=== PATIENT | male | born 1995 | race Caucasian/White ===

== ENCOUNTER 2019-11-07 23:42 | Emergency (ER) | payer OTHER, SELFPAY ==
[2019-11-07 23:44] VITALS: BP 167/103; PULSE 95; RESP 17; TEMP 36.1; O2SAT 97; BMI 28.9
--- NOTE | 2019-11-08 00:07 | CT_ITS ---
STUDY: CT LUMBAR SPINE WITHOUT CONTRAST REASON FOR EXAM: Male, 24 years old. BACK PAIN, RADICULOPATHY, INJURED WHILE LIFTING YESTERDAY. RADIATES TO BOTH LEGS MOSTLY LEFT. RADIATION DOSAGE (If Supplied By Facility): CTDIvol = ( 14.70 ) mGy, DLP = ( 581.51 ) mGycm TECHNIQUE: The patient was scanned in a multi detector CT scanner. High resolution transaxial imaging was performed. Images were obtained from T11-T12 to distal coccyx. Sagittal and coronal images were reconstructed. Individualized dose optimization techniques were used for this CT. COMPARISON: None FINDINGS: Normal lumbar lordosis. There is mild scoliosis, convexity to the left. Normal alignment of the lumbar vertebral bodies. Normal vertebrae of the lumbar spine. There is no demonstrated compression deformity or fracture of the visualized lumbar vertebrae. L1-2: Normal endplates. Normal disc height and morphology. Normal bilateral facet joints. Normal central canal and bilateral lateral recesses. Normal bilateral intervertebral neural foramina. L2-3: Normal endplates. Normal disc height and morphology. Normal bilateral facet joints. Normal central canal and bilateral lateral recesses. Normal bilateral intervertebral neural foramina. L3-4: Normal endplates. Normal disc height and morphology. Normal bilateral facet joints. Normal central canal and bilateral lateral recesses. Normal bilateral intervertebral neural foramina. L4-5: Focal disc bulge in the left paracentral region. Borderline mild spinal stenosis. L5-S1: Normal endplates. Normal disc height and morphology. Normal bilateral facet joints. Normal central canal and bilateral lateral recesses. Normal bilateral intervertebral neural foramina. Normal visualized paraspinous soft tissue structures. CT/Spine Lumbar without Contrast IMPRESSION: Mild scoliosis as described. Left paracentral focal disc bulge versus herniation. No significant neuroforaminal encroachment. Electronically Signed: Radha Perez MD at 0:49 EST , Service support ,
[2019-11-08] MEDS: Ketorolac 30 MG/ML Syringe IM (00:42)
--- NOTE | 2019-11-08 01:14 | ED.VIS.BACK ---
History of Present Illness Chief Complaint: Back Narrative: Patient presenting for evaluation secondary to back pain. Patient reports that yesterday he was lifting. He reports that as he was doing this exercise, he felt a sudden pop in his lower back and a sudden severe onset of pain. Patient reports that he has had continuous pain since then that radiates down both of his legs, but left being worse than right. He reports that he is having numbness in his toes bilaterally again left being worse than right. He denies any weakness associated with this. He denies any bowel or bladder incontinence associated with this. Patient states that he has been taking [id number] analgesics with minimal relief. He does have a history of having a prior back injury but nothing really this severe. Review of systems otherwise negative. Past Medical History - Allergies and Home Meds Allergies/Adverse Reactions: Allergies No Known Allergies Allergy (Verified 11/07/19 23:43) Primary Care Physician: Care Physician,No Primary [Primary Care Provider] - Past Medical History: None Smoking Status: Current every day smoker Review of Systems All systems negative except as indicated General: Denies: Chills, Fever, Sweats Eyes: Denies: Visual changes - bilaterally, Diplopia ENT: Denies: Rhinorrhea, Sore throat Cardiovascular: Denies: Chest pain, Palpitations Respiratory: Denies: Dyspnea, Cough, Dyspnea on exertion Gastrointestinal: Denies: Abdominal pain, Nausea, Vomiting, Diarrhea, Melena, Hematochezia Genitourinary: Denies: Dysuria, Hematuria, Frequency Musculoskeletal: Reports: Back pain Skin: Denies: Rash, Wounds Neurological: Reports: Numbness Physical Exam Vital Signs/Narrative: Vital Signs Temp Pulse Resp BP Pulse Ox 11/07/19 23:44 97.0 F L 95 17 167/103 H 97 Inital Vital Signs reviewed: Yes General: Well nourished, Well developed Head: Normocephalic, Atraumatic Eyes: Perrl, EOMI ENT: Moist mucous membranes, No rhinorrhea Neck: Supple, Nontender Cardiovascular: Regular rate, Regular rhythm, No murmurs Respiratory: No distress, CTA bilaterally, Chest nontender Abdomen: Soft, Nontender, Nondistended, Normal bowel sounds Back: Normal Inspection, Nontender, Positive SLR - Right, Positive SLR - Left Extremeties: Nontender, No edema Skin: Normal color, No rash Neuro: Alert, Oriented, Normal Strength, Normal Sensation, Normal DTR, Normal Gait, - - 5 out of 5 strength hip flexion knee flexion knee extension dorsiflexion plantarflexion and EHL. Normal sensation over all dermatomes. 2+ patellar and Achilles reflexes bilaterally negative clonus and Babinski. 2+ DP and PT pulses bilaterally symmetric. Reflexes: Negative for: Right Clonus, Right Babinski, Left Clonus, Left Babinski Psychological: Normal affect Diagnostic/Tx/Re-eval - Medical Decision Making Patient presented secondary to back pain. This does seem to have a radicular component and was sudden onset with heavy lifting I was concerned for the possibility of bulging disc so CT imaging was performed. This was confirmed with CT. Patient was given a dose of Toradol. Patient has absolutely no signs of motor compromise or any signs of cauda equina syndrome, I do not feel that neuroimaging are indicated. Patient at this point I believe can be appropriately be treated with a Medrol pack, as well as anti-inflammatories. He will be given a referral to orthopedics for potential initiation of a physical therapy regimen. All questions were answered and the patient was discharged. ED Disposition - Plan for ED Patient: Disposition: Home or Assisted Living Diagnosis: Lumbar radiculopathy, acute Instructions: BACK PAIN w/ SCIATICA Prescriptions: MethylPREDNISolone DosePak [Medrol DosePak] 4 mg PO UD #1 box Prescription Printed Naproxen [Naprosyn] 500 mg PO BID PRN #20 tab Prescription Printed Referrals: Ricardo Addison MD [STAFF PHYSICIAN] - 5-7 Days
[2019-11-08 01:21] VITALS: BP 150/98; PULSE 92; RESP 16; O2SAT 99
--- NOTE | 2019-11-08 01:23 | ED.RN ---
PT OBSERVED FOR SHOT TIME FOR GREATER THAN 15MIN NO REACTION NOTED BY THIS RN. PT D/C.
== END 2019-11-08 01:24 | disposition home or self-care (01) ==
PROVIDERS: Emergency Provider Emergency Medicine
DX: M54.16 Radiculopathy, lumbar region (principal); Z72.0 Tobacco use
CPT/HCPCS: 72131; 96372; 99282

== ENCOUNTER → 2020-09-13 16:36 | Outpatient (CLI) | payer OTHER, SELFPAY ==
[2020-09-13 16:44] LABS: Bacteria 0 SEEN /hpf (None Seen); Mucous, Urine 0 SEEN /hpf (<or=2+); Red Blood Cells-Urine 0 SEEN /hpf (0-5); Squamous Epithelial Cells - UA 0 SEEN /hpf (0-5); White Blood Cells 0 SEEN /hpf (0-5)
[2020-09-13 18:18] LABS: Color, Urine Yellow (Yellow); Glucose, Dipstick Normal (Normal); Ketone-Dipstick Negative (Negative); Leukocyte Esterase-Dipstick Negative /ul (Negative); Nitrite-Dipstick Negative (Negative); Occult Blood-Urine Negative /ul (Negative); Protein-Dipstick Negative (Negative); Specific Gravity, Urine 1.015 (1.002-1.030); Urine Bilirubin Dipstick Negative (Negative); Urine Clarity Cloudy (Clear); Urine Urobilinogen Normal (Normal)
[2020-09-13 18:19] LABS: Amorphous Sediment 3+
[2020-09-13 18:51] LABS: HIV - WCH Non-Reactive (Nonreactive)
[2020-09-13 19:49] LABS: Chlamydia Trachomatis by PCR Negative (Negative); Neisserai gonorrhoeae by PCR Negative (Negative); Probe Check PASS; Sample Adequacy Control PASS; Specimen Processing Control PASS
[2020-09-16 01:36] LABS: Rapid Plasmin Reagin (RPR) NONREACTIVE (NONREACTIVE)
== END ==
PROVIDERS: Visit Provider Family Medicine
DX: Z11.3 Encounter for screening for infections with a predominantly sexual mode of transmission (principal)
CPT/HCPCS: 36415; 81001; 86592; 86703; 87491; 87591